=== PATIENT | female | born 1940 | race Caucasian/White ===

== ENCOUNTER 2018-06-30 14:20 | Outpatient (CLI) | payer MEDICARE, OTHER | END 2018-06-30 14:21 | disposition home or self-care (01) | LOC: SC 14:20 | PROVIDERS: ATTEND Internal Medicine Pulmonary Disease | DX: R06.81 Apnea, not elsewhere classified (principal); R06.83 Snoring; R41.89 Other symptoms and signs involving cognitive functions and awareness; G47.8 Other sleep disorders; E66.9 Obesity, unspecified; Z68.30 Body mass index [BMI] 30.0-30.9, adult | CPT/HCPCS: 99203; G0463; 99212 ==

== ENCOUNTER 2018-07-14 19:30 | Outpatient (CLI) | payer MEDICARE, OTHER | END 2018-07-14 23:59 | disposition home or self-care (01) | LOC: SC 19:30 | PROVIDERS: ATTEND Internal Medicine Pulmonary Disease | DX: G47.33 Obstructive sleep apnea (adult) (pediatric) (principal) | CPT/HCPCS: G0399 ×2; 95806 ==

== ENCOUNTER 2018-08-15 10:09 | Outpatient (CLI) | payer MEDICARE, OTHER | END 2018-08-15 10:10 | disposition home or self-care (01) | LOC: SC 10:09 | PROVIDERS: ATTEND Internal Medicine Pulmonary Disease | DX: G47.33 Obstructive sleep apnea (adult) (pediatric) (principal) | CPT/HCPCS: 99213; G0463; 99212 ==

== ENCOUNTER 2018-10-17 10:10 | Outpatient (CLI) | payer MEDICARE, OTHER | END 2018-10-17 10:11 | disposition home or self-care (01) | LOC: SC 10:10 | PROVIDERS: ATTEND Internal Medicine Pulmonary Disease | DX: G47.33 Obstructive sleep apnea (adult) (pediatric) (principal) | CPT/HCPCS: 99213; G0463; 99212 ==

== ENCOUNTER 2018-12-06 10:05 | Outpatient (CLI) | payer MEDICARE, OTHER ==
--- NOTE | 2018-12-06 10:45 | CONSULTATION NOTE ---
Information from patient questionnaire entered by Edith Schneider. I have reviewed and concur with the information entered by Edith Schneider. This document represents the service I personally performed and the decisions made by me, Moises Arteaga MD, [facility]. - History of Present Illness HPI: HPI: Ms. Arzola returned today for follow up of nasal CPAP therapy. She was diagnosed to have mild obstructive sleep apnea-hypopnea syndrome (AHI was 8.1). The patient wears with a full face mask. She reports using the device nightly and all through the night averaging 6 hours a night. She complained of the mask hurting her forehead but no particular problem with the device such as dry nose, epistaxis, nasal congestion or headache. She thinks that the pressure of 4 8 cmH2O is comfortable. On the CPAP therapy she notices improvement in her sleep quality, and that she wakes up feeling fresher in the morning and more awake/alert during the day. The average residual AHI is 5.2 (same as on the previous higher setting); and average time in large leak per day is 22 minutes. The 90th percentile pressure is 7.1 cmH2O. Equipment obtained from: [employer] - Compliance Data Reviewed with Patient Average duration of nightly device use: 6 Compliance rate % (4+hrs/night over past 30 nights): 86.7 Current pressure setting (cmH2O): 4-8 Humidity settin Heated hose settin - Subjective Initial Valentine Sleepiness Scale score: 4 Current Valentine Sleepiness Scale score: 2 - Review of Systems Review of systems same as previous: Yes - Allergies/Medications Allergies and home medications reviewed: Yes - Impression 1. Obstructive Sleep Apnea-Hypopnea Syndrome, mild, with the patient doing well on nasal CPAP therapy. She has excellent compliance and significant clinical improvement. The current pressure appears effective and comfortable. Overall, she is very satisfied with treatment and plans to continue with it long-term. No adjustment is necessary today. - Plan Plan: 1. Continue with nasal autoCPAP set at 4 - 8 cmH2O. 2. Try to lose some weight 3. Try ResMed AirTouch F-20 full face mask 4. Return in one year for follow up or earlier if there is any problem with the treatment. This visit is time-based and I spent 15 minutes with the patient and more than 50% of the time was spent counseling the patient.
== END 2018-12-06 10:06 | disposition home or self-care (01) ==
LOC: SC 10:05
PROVIDERS: ATTEND Internal Medicine Pulmonary Disease
DX: G47.33 Obstructive sleep apnea (adult) (pediatric) (principal)
CPT/HCPCS: 99213; G0463; 99212

== ENCOUNTER 2020-04-30 14:03 | Outpatient (CLI) | payer MEDICARE, OTHER ==
--- NOTE | 2020-04-30 15:40 | XRAY Report ---
PROCEDURE: Humerus LT INDICATIONS: GLF X 2 DAYS AGO LT SHOULDER PAIN TECHNIQUE: AP and lateral views of the humerus were acquired. COMPARISON: None FINDINGS: Bones: No acute or subacute fractures or dislocations. No suspicious bony lesions. Soft tissues: No suspicious soft tissue calcifications. IMPRESSION: Left humerus without acute or subacute fracture. Normal alignment. Reviewed by: Montrell Amanda MD on 04/30/2020 3:39 PM PST Approved by: Montrell Amanda MD on 04/30/2020 3:39 PM PST Station ID: [id number]
--- NOTE | 2020-04-30 15:41 | XRAY Report ---
PROCEDURE: Shoulder 3 View LT INDICATIONS: GLF X 2 DAYS AGO LT SHOULDER PAIN TECHNIQUE: 3 views of the shoulder were acquired. COMPARISON: None. FINDINGS: Bones: No acute fractures or dislocations. Degenerative changes of the left acromioclavicular and g lenohumeral joints. Coracoclavicular and acromioclavicular intervals are maintained. Likely subchondr al degenerative cystic changes of the humeral head. No suspicious bony lesions. Visualized ribs appe ar intact. Soft tissues: No suspicious soft tissue calcifications. IMPRESSION: Left shoulder without acute fracture or dislocation. Degenerative changes of the left acromioclavicul ar and glenohumeral joints. Reviewed by: Montrell Amanda MD on 04/30/2020 3:40 PM PST Approved by: Montrell Amanda MD on 04/30/2020 3:40 PM [facility] [place] Station ID: [id number]
== END 2020-04-30 14:04 | disposition home or self-care (01) ==
LOC: DI.N 14:03
PROVIDERS: ATTEND Physician Assistant
DX: M19.012 Primary osteoarthritis, left shoulder (principal); M79.622 Pain in left upper arm